=== PATIENT | male | born 1965 | race Caucasian/White ===

== ENCOUNTER 2016-09-01 23:21 | Emergency (ER) | payer OTHER, MEDICAID ==
[2016-09-01 23:50] VITALS: BP 171/99; PULSE 115; RESP 16; TEMP 98.3; O2SAT 98
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
[2016-09-02] MEDS ORDERED: SODIUM CHLOR 0.9% 1000 ML INJ 1,000 ML IV ONE ×2 (00:15→01:15)
[2016-09-02] MEDS ORDERED: ONDANSETRON HCL 4 MG/2 ML VIAL IV ONE (00:15)
[2016-09-02] MEDS ORDERED: KETOROLAC TROMETHAMINE 30 MG/ML (IVP) VIAL IV PUSH ONE ×2 (00:15→02:45)
[2016-09-02 00:36] LABS: AUTOMATED NEUTROPHIL # 10.4 TH/MM3 (1.8-7.7); BASOPHIL # 0.1 TH/MM3 (0-0.2); BASOPHIL % 0.7 % (0.0-2.0); EOSINOPHIL % 0.3 % (0.0-4.0); HEMATOCRIT 44.5 % (39.0-51.0); HEMO FLAGS DIFF FINAL; LYMPHOCYTE # 1.7 TH/MM3 (1.0-4.8); MEAN CELL VOLUME 87.7 FL (80.0-100.0); MEAN CORPUSCULAR HEMOGLOBIN 29.7 PG (27.0-34.0); MEAN CORPUSCULAR HGB CONC 33.9 % (32.0-36.0); MONO % 6.7 % (0.0-8.0); NEUT % 79.3 % (16.0-70.0); PLATELET COUNT 317 TH/MM3 (150-450); RED BLOOD COUNT 5.07 MIL/MM3 (4.50-5.90); RED CELL DISTRIBUTION WIDTH 13.1 % (11.6-17.2); WHITE BLOOD COUNT 13.1 TH/MM3 (4.0-11.0)
--- NOTE | 2016-09-02 00:45 | RADRPT ---
EXAM DATE/TIME: 09/01/2016 23:59 [facility] COMPARISON: No previous studies available for comparison. INDICATIONS : Shortness of breath. MEDICAL HISTORY : None. SURGICAL HISTORY : None. ENCOUNTER: Initial ACUITY: 1 day PAIN SCORE: 10/10 LOCATION: Bilateral chest FINDINGS: A single view of the chest demonstrates the lungs to be symmetrically aerated without evidence of mas s, infiltrate or effusion. The cardiomediastinal contours are unremarkable. Osseous structures are intact. CONCLUSION: 1. No acute findings. Froy Mcgregor MD on September 02, 2016 at 0:43 Board Certified Radiologist. This report was verified electronically.
[2016-09-02 01:06] LABS: ALKALINE PHOSPHATASE 69 U/L (45-117); TOTAL BILIRUBIN ADULT 0.6 MG/DL (0.2-1.0)
[2016-09-02 01:07] LABS: ALT (GPT) 40 U/L (12-78); ANION GAP 9 MEQ/L (5-15); AST (GOT) 35 U/L (15-37); BICARBONATE 27.1 MEQ/L (21.0-32.0); BLOOD UREA NITROGEN 21 MG/DL (7-18); CHLORIDE 108 MEQ/L (98-107); GLOMERULAR FILTRATION RATE 49 ML/MIN (>89); MAGNESIUM 2.2 MG/DL (1.5-2.5); POTASSIUM 4.2 MEQ/L (3.5-5.1); SODIUM (NA) 144 MEQ/L (136-145)
--- NOTE | 2016-09-02 01:08 | RADRPT ---
EXAM DATE/TIME: 09/02/2016 00:34 [facility] COMPARISON: No previous studies available for comparison. INDICATIONS : Lefty lower qaudrant pain. Possible renal stone ORAL CONTRAST: No oral contrast ingested. RADIATION DOSE: 19.71 CTDIvol (mGy) MEDICAL HISTORY : None SURGICAL HISTORY : None. ENCOUNTER: Initial ACUITY: 1 day PAIN SCALE: 10/10 LOCATION: Left lower quadrant TECHNIQUE: Volumetric scanning of the abdomen and pelvis was performed. Using automated exposure control and ad justment of the mA and/or kV according to patient size, radiation dose was kept as low as reasonably achievable to obtain optimal diagnostic quality images. FINDINGS: Lung bases are clear. No acute findings in the liver, spleen, adrenals, right kidney or pancreas. Flash cified gallstones in the gallbladder. There is mild left-sided hydronephrosis and obstructive uropathy above a 5 mm x 3.5 mm calculus in th e distal left ureter just above the bladder. No bowel obstruction. No free fluid or free air. CONCLUSION: 1. Left-sided obstructive uropathy with mild left hydronephrosis and ureteral dilatation above a 5 mm x 3.5 mm calculus in the distal left ureter just above the bladder. 2. Multiple calcified gallstones in the gallbladder without there are ductal dilatation. Froy Mcgregor MD on September 02, 2016 at 1:03 Board Certified Radiologist. This report was verified electronically.
[2016-09-02 01:22] VITALS: BP 136/85; PULSE 104; RESP 16; O2SAT 100
[2016-09-02] MEDS ORDERED: HYDR-3534 PO (03:16)
[2016-09-02] MEDS ORDERED: NAPR1TAB34 PO (03:16)
[2016-09-02] MEDS ORDERED: TAMS5CAP PO (03:16)
--- NOTE | 2016-09-02 20:21 | EKG ---
Date Performed: 09/02/2016 Time Performed: 00:46:53 PTAGE: 51 years EKG: Sinus rhythm NONSPECIFIC T-WAVE ABNORMALITY BORDERLINE ECG NO PREVIOUS TRACING DOCTOR: Teresa Neri Interpretating Date/Time 09/02/2016 20:20:11
== END 2016-09-02 03:31 | disposition home or self-care (01) ==
LOC: NEPE 23:21
DX: N13.2 Hydronephrosis with renal and ureteral calculous obstruction (principal); R94.31 Abnormal electrocardiogram [ECG] [EKG]
CPT/HCPCS: 71010; 74176; 80053; 83605; 83690; 83735; 85025; 86140; 93005; 96374; 96375; 96376; 99285; J1885; J2405; J7030

== ENCOUNTER 2016-09-28 06:05 | Emergency (ER) | payer OTHER, MEDICAID ==
[~2016-09-28 06:05] MED LIST: HYDR-3534 PO; NAPR1TAB34 PO; TAMS5CAP PO
[2016-09-28 06:08] VITALS: BP 104/68; PULSE 94; RESP 18; TEMP 97.9; O2SAT 97
[2016-09-28] MEDS ORDERED: LURA40 PO (06:28)
[2016-09-28] MEDS ORDERED: CLON1 PO (06:28)
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
[2016-09-28 06:58] LABS: AUTOMATED NEUTROPHIL # 5.7 TH/MM3 (1.8-7.7); BASOPHIL % 0.4 % (0.0-2.0); EOSINOPHIL # 0.1 TH/MM3 (0-0.4); EOSINOPHIL % 1.4 % (0.0-4.0); HEMATOCRIT 39.5 % (39.0-51.0); HEMO FLAGS DIFF FINAL; LYMPH % 18.3 % (9.0-44.0); LYMPHOCYTE # 1.4 TH/MM3 (1.0-4.8); MEAN CELL VOLUME 86.4 FL (80.0-100.0); MEAN CORPUSCULAR HEMOGLOBIN 30.3 PG (27.0-34.0); MONO % 7.6 % (0.0-8.0); NEUT % 72.3 % (16.0-70.0); PLATELET COUNT 233 TH/MM3 (150-450); RED BLOOD COUNT 4.57 MIL/MM3 (4.50-5.90); RED CELL DISTRIBUTION WIDTH 12.7 % (11.6-17.2); WHITE BLOOD COUNT 7.9 TH/MM3 (4.0-11.0)
[2016-09-28 07:04] LABS: AMPHETAMINE, URINE NEG (NEG); BARBITURATES, URINE NEG (NEG); COCAINE, URINE NEG (NEG)
[2016-09-28 07:12] LABS: ALT (GPT) 24 U/L (12-78); ANION GAP 8 MEQ/L (5-15); AST (GOT) 14 U/L (15-37); BICARBONATE 25.2 MEQ/L (21.0-32.0); BLOOD UREA NITROGEN 15 MG/DL (7-18); CHLORIDE 108 MEQ/L (98-107); GLOMERULAR FILTRATION RATE 75 ML/MIN (>89); POTASSIUM 3.6 MEQ/L (3.5-5.1); SODIUM (NA) 141 MEQ/L (136-145)
[2016-09-28 07:14] LABS: ACETAMINOPHEN 11.7 MCG/ML (10.0-30.0); ALKALINE PHOSPHATASE 73 U/L (45-117); TOTAL BILIRUBIN ADULT 0.3 MG/DL (0.2-1.0)
--- NOTE | 2016-09-28 07:44 | PD ---
Physical Exam Time Seen by Provider: 07:42 Narrative Patient was transitioned to mt by the prior provider as his labs had not been resulted. He is awaiting medical clearance to be transferred to [facility]. Data Data Last Documented VS Vital Signs Date Time Temp Pulse Resp B/P Pulse Ox O2 Delivery O2 Flow Rate FiO2 09/28/16 06:08 97.9 94 18 104/68 97 Orders Complete Blood Count With Diff (09/28/16 06:26) Comprehensive Metabolic Panel (09/28/16 06:26) Psych Screen (09/28/16 06:26) Drug Screen, Random Urine (09/28/16 06:26) Alcohol (Ethanol) (09/28/16 06:26) Salicylates (Aspirin) (09/28/16 06:26) Tylenol (Acetaminophen) (09/28/16 06:26) Diet Regular Basic (09/28/16 Breakfast) Labs Laboratory Tests Test 09/28/16 06:36 White Blood Count 7.9 TH/MM3 Red Blood Count 4.57 MIL/MM3 Hemoglobin 13.8 GM/DL Hematocrit 39.5 % Mean Corpuscular Volume 86.4 FL Mean Corpuscular Hemoglobin 30.3 PG Mean Corpuscular Hemoglobin 35.0 % Concent Red Cell Distribution Width 12.7 % Platelet Count 233 TH/MM3 Mean Platelet Volume 9.5 FL Neutrophils (%) (Auto) 72.3 % Lymphocytes (%) (Auto) 18.3 % Monocytes (%) (Auto) 7.6 % Eosinophils (%) (Auto) 1.4 % Basophils (%) (Auto) 0.4 % Neutrophils # (Auto) 5.7 TH/MM3 Lymphocytes # (Auto) 1.4 TH/MM3 Monocytes # (Auto) 0.6 TH/MM3 Eosinophils # (Auto) 0.1 TH/MM3 Basophils # (Auto) 0.0 TH/MM3 CBC Comment DIFF FINAL Differential Comment Sodium Level 141 MEQ/L Potassium Level 3.6 MEQ/L Chloride Level 108 MEQ/L Carbon Dioxide Level 25.2 MEQ/L Anion Gap 8 MEQ/L Blood Urea Nitrogen 15 MG/DL Creatinine 1.04 MG/DL Estimat Glomerular Filtration 75 ML/MIN Rate Random Glucose 147 MG/DL Calcium Level 8.6 MG/DL Total Bilirubin 0.3 MG/DL Aspartate Amino Transf 14 U/L (AST/SGOT) Alanine Aminotransferase 24 U/L (ALT/SGPT) Alkaline Phosphatase 73 U/L Total Protein 7.3 GM/DL Albumin 4.0 GM/DL Salicylates Level 2.1 MG/DL Urine Opiates Screen POS Acetaminophen Level 11.7 MCG/ML Urine Barbiturates Screen NEG Urine Amphetamines Screen NEG Urine Benzodiazepines Screen NEG Urine Cocaine Screen NEG Urine Cannabinoids Screen NEG Ethyl Alcohol Level LESS THAN 3 MG/DL MDM Medical Record Reviewed: Yes Supervised Visit with LAURA: No Differential Diagnosis Anxiety, depression Narrative Course Labs have been reviewed. Blood sugar elevated at 147. abnormal results below: Laboratory Tests Test 09/28/16 06:36 Neutrophils (%) (Auto) 72.3 % (16.0-70.0) Chloride Level 108 MEQ/L (98-107) Estimat Glomerular Filtration 75 ML/MIN (>89) Rate Random Glucose 147 MG/DL (74-106) Aspartate Amino Transf 14 U/L (15-37) (AST/SGOT) Salicylates Level 2.1 MG/DL (2.8-20.0) Urine Opiates Screen POS (NEG) Patient is medically cleared for transfer to psych. Diagnosis Primary Impression: Anxiety and depression Condition: Stable Natalie Garcia Sep 28, 2016 07:44
--- NOTE | 2016-09-28 09:48 | MB ---
cc: GOLD KRAMER DATE OF CONSULTATION 09/28/2016 PHYSICIAN REQUESTING CONSULTATION Emergency department. REASON FOR CONSULTATION Voluntary psychiatric evaluation. HISTORY OF PRESENT ILLNESS Mr. Mcguire is 51-year-old male with a reported history of schizophrenia and agoraphobia who presents voluntarily requesting a psychiatric evaluation. He apparently articulated some suicidal and homicidal ideation to the ED provider but was not placed under a Vu Act. Reviewing the electronic medical record, I see no prior psychiatric contact within our system. The patient is seen and examined, chart reviewed, case discussed with nurse in the [facility]. On my examination today, social issues seem to predominate. The patient presents as extremely manipulative and antisocial. He tells me that he has recently moved up from [facility] within the last year or so and currently is forced to live in a "bad apartment surrounded by low-lifes, crime infested." He says that he does not like living in this apartment because "other nationality people are there that I do not like." He also alludes to it being in a "bad black neighborhood." He says that he wants us to psychiatrically admit him in order to house him and says that if I recommend his discharge from the emergency department he is going to manufacture a circumstance to be brought back to the ED so that "you are going to have to keep me." He says that his undesirable living situation has made him somewhat anxious and as a consequence he has been over-using his reportedly prescribed Klonopin. Otherwise, the patient's psychiatric symptomatology is fairly vague. The patient says that his psychiatric symptoms were in "intermission" until the above stressors occurred. He describes what he calls panic attacks but which sound more like paroxysms of high anxiety and not genuine panic but otherwise voluntarily spontaneously describes no psychiatric symptomatology. With questioning, he does allude to some "hallucinations" although he cannot describe these in any detail whatsoever. He also, when pressed, says that he is having "homicidal thoughts towards myself and others." He does not articulate any specific victim. He also acknowledges that any sort of violent behavior would be both of illegal and immoral and result in legal sanction and residential/custodial. Overall presentation seems extremely malingered. The remainder of the psychiatric ROS is negative. PAST PSYCHIATRIC HISTORY The patient reports that he was diagnosed with schizophrenia and agoraphobia in 1986. He says that he followed with a psychiatrist in [facility] at [facility] since 2001 and recently has begun seeing a provider at [facility], who he saw a last month. He is reportedly prescribed Klonopin 1 mg three times a day and Zoloft 150 mg three times a day. He reports that his most recent psychiatric admission was in 2005 in [facility]. He reports one prior suicide attempt in 1986 in which he tried to walk in traffic. FAMILY HISTORY The patient reports that his mother and maternal grandfather had "the same thing" as he has. He denies any family history of suicide. He denies reports that there is a family history of substance use disorder on his father's side of the family. CHEMICAL DEPENDENCY HISTORY The patient denies any abuse of drugs or alcohol. He says that the toxicology finding of opiates was from codeine that he was given and for a kidney stone. SOCIAL HISTORY The patient denies a history of physical, verbal or sexual abuse. He lives alone in an apartment in [place]. He is currently on disability and has some college education. He denies any or legal history. He is single with no children. He is a Amish. PAST MEDICAL HISTORY History of kidney stone. See electronic medical record. REVIEW OF SYSTEMS No reported headache, vision or hearing changes, chest pain, shortness of breath, bowel or bladder issues. No other physical complaints. PHYSICAL EXAMINATION VITAL SIGNS: Temperature 97.9, pulse 94, respirations 18, blood pressure 104/68, pulse oximetry 97% on room air. Physical examination was completed in the emergency room by the ER staff and the patient was medically cleared. On my examination today, the patient appears to be in no acute physical distress. He appears to be well-nourished and well-developed and well-groomed. No motor abnormalities noted. LABORATORIES REVIEWED CBC is unremarkable. CMP is significant for mildly decreased GFR at 75 and mild hyperglycemia at 147. Toxicology is positive for opiates and alcohol level was undetectable. MENTAL STATUS EXAM The patient is casually dressed. He is well-groomed and certainly maintaining basic hygiene. He is awake, alert and oriented to person and hospital as well as approximate date. No evidence of delirium. No motor abnormalities noted. Speech is within normal limits for rate, tone and volume. Language and fund of knowledge seem average. Mood is somewhat dysphoric but not really depressed and affect is restricted, particularly when I directly challenge him on when I suspect is his malingering behavior. Thought process linear and goal-directed. No loosening of associations. No evident delusions. When pressed describes vague audiovisual hallucinations but does not appear at all internally stimulated. He does articulate some vague suicidal and homicidal ideation with no specific victim in mind in the context of a discharge discussion only. Insight and judgment seem fair. ASSESSMENT AND PLAN 1. Malingering, I suspect to get out of his apartment which he does not like and be housed on the inpatient unit, Z76.5. 2. Adjustment reaction with antisocial behavior, F43.29. This is a 51-year-old male with psychiatric history as described above who presents on a voluntary basis requesting psychiatric evaluation. On my examination today, the patient presents as extremely manipulative and antisocial. He says that he has moved up from [facility] to [place] and does not like his apartment because his area is crime-ridden and too filled for his taste with -Americans and people of other nationalities. He expects that I will admit him to the inpatient psychiatric unit and house him there and he says that if I do not recommend his admission to the inpatient psychiatric unit, he will simply manufacture a circumstance that will necessitate his admission. Weighing the acute, chronic, and protective factors and based on the available evidence, I respiratory technician that the patient does not constitute a risk of harm to self or others from a mental illness as defined under the Vu Act, antisocial personality being specifically excepted from the Vu Act definition of mental illness. His level of function appears to be adequate for outpatient care. Therefore, the patient does not require psychiatric admission at this time. Moreover, I suspect any admission would be counter-therapeutic as it would reinforce his manipulative behavior. Given that the patient is new to us from a psychiatric standpoint, I will retain the patient in the ED if he is willing to allow us to obtain some collateral information, and I have instructed the nursing staff to pursue this. So long as this is not terribly concerning, the patient may be discharged from the ED from a psychiatric standpoint. He is recommended to follow up with his outpatient psychiatric provider and to return to the psychiatric emergency room for any concerning psychiatric symptoms. Case discussed with RN in the [facility] as well as in the [facility]. Thank you very much for this consultation. Gold Kramer DC/BARRERA /8:28 AM /9:19 AM JAYNE
[2016-09-28 10:13] VITALS: BP 108/69; PULSE 88; RESP 18
[2016-09-28 16:03] VITALS: BP 103/64; PULSE 74; RESP 16; TEMP 97.9; O2SAT 97
[2016-09-28 17:00] VITALS: BP 103/64; PULSE 74; RESP 16; O2SAT 97
== END 2016-09-28 18:33 | disposition home or self-care (01) ==
LOC: NEPD 06:05 → NEPJ 18:33
DX: F41.8 Other specified anxiety disorders (principal); F43.29 Adjustment disorder with other symptoms; Z76.5 Malingerer [conscious simulation]; Z86.59 Personal history of other mental and behavioral disorders; Z87.442 Personal history of urinary calculi
CPT/HCPCS: 80053; 80307; 85025; 99284

== ENCOUNTER 2016-10-19 12:20 | Emergency (ER) | payer OTHER, MEDICAID ==
[~2016-10-19 12:20] MED LIST changes: +CLON1 PO; +LURA40 PO
[2016-10-19 12:22] VITALS: BP 128/87; PULSE 114; RESP 20; TEMP 97.8; O2SAT 97
--- NOTE | 2016-10-19 12:57 | PD ---
Physical Exam Date Seen by Provider: October 19, 2016 Time Seen by Provider: 12:49 Narrative 51 y/o male with Hx Left Renal Colic and Gallbladder stones here with ongoing pain and Nausea. Was seen by Dr. Jalloh this am and had repeat CT scan of Abd. Was told to come here as his Insurance was not taken by them, and he needed surgerical procedure that needed to happen in the Hospital. Patient has pain 6/ 10. Denies fever, nausea or urinary burning. V/S Stable Awaiting Bed Placement. Data Data Last Documented VS Vital Signs Date Time Temp Pulse Resp B/P Pulse Ox O2 Delivery O2 Flow Rate FiO2 10/19/16 12:22 97.8 114 20 128/87 97 Room Air [facility] Medical Record Reviewed: Yes Supervised Visit with LAURA: Yes Condition: Stable Corey Montoya October 19, 2016 12:57
[2016-10-19] MEDS ORDERED: KETOROLAC TROMETHAMINE 30 MG/ML (IVP) VIAL IVP ONE (16:00)
[2016-10-19] MEDS ORDERED: SODIUM CHLOR 0.9% 1000 ML INJ 1,000 ML IV SCH (16:00)
[2016-10-19] MEDS ORDERED: MORPHINE SULFATE 4 MG/ML INJ IV PUSH ONE (16:00)
[2016-10-19] MEDS ORDERED: ONDANSETRON HCL 4 MG/2 ML VIAL IVP ONE (16:00)
[2016-10-19] MEDS ORDERED: SODIUM CHLORIDE 0.9% FLUSH 10 ML FLUSH IV FLUSH PRN (16:00)
--- NOTE | 2016-10-19 16:08 | PD ---
HPI Chief Complaint: Flank/Kidney Pain Time Seen by Provider: 16:00 Travel History International Travel<30 days: No Contact w/Intl Traveler<30days: No Traveled to known affect area: No History of Present Illness HPI The patient is a 51-year-old male who presents to the emergency department from Dr. Amaro's office for left flank pain and epigastric to right upper quadrant abdominal pain. The patient has a history of kidney stone on the left side with mild hydronephrosis, was referred to see urology and an outpatient basis. The patient states he went to his urologist office earlier today and they performed a CT the abdomen and pelvis, however, stated they were unable to see him because of his insurance and referred him to the emergency department. The patient does complain of left flank pain that radiates into the left testicle, denies any hematuria, dysuria, frequency, or urgency. The patient also complains of right upper quadrant and epigastric abdominal pain for last several weeks associated with nausea and postprandial symptoms. The patient does have a history of gallstones, was advised to come to the emergency department for further evaluation of his gallstones. The patient denies a fever , chills, or sweats. PFSH Past Medical History Bipolar Disorder: Yes Depression: Yes Diminished Hearing: No Kidney Stones: Yes Psychiatric: Yes Schizophrenia: Yes Social History Alcohol Use: No Tobacco Use: No Substance Use: No (Denies) Allergies-Medications (Allergen,Severity, Reaction): Coded Allergies: No Known Allergies (Unverified , 10/19/16) Reported Meds & Prescriptions Reported Meds & Active Scripts Active Naproxen EC (Naproxen) 500 Mg Tabdr 500 Mg PO BID PRN Lortab (Hydrocodone-Acetaminophen) 7.5-325 Mg Tab 1 Tab PO Q6H PRN Flomax (Tamsulosin HCl) 0.4 Mg Cap 0.4 Mg PO HS Reported Latuda (Lurasidone) 40 Mg Tab 40 Mg PO DAILY Klonopin (Clonazepam) 1 Mg Tab 1 Mg PO DAILY Review of Systems Except as stated in HPI: all other systems reviewed are Neg General / Constitutional: No: Fever Cardiovascular: No: Chest Pain or Discomfort Respiratory: No: Shortness of Breath Gastrointestinal: Positive: Nausea, Abdominal Pain, No: Vomiting, Diarrhea Genitourinary: Positive: Flank Pain, Other (left flank pain radiating into the scrotum), No: Dysuria Skin: No Rash Physical Exam Narrative GENERAL: Awake, alert, 51-year-old male who appears his stated age and is in no acute respiratory distress. SKIN: Focused skin assessment warm/dry. HEAD: Atraumatic. Normocephalic. EYES: Pupils equal and round. No scleral icterus. No injection or drainage. ENT: No nasal bleeding or discharge. Mucous membranes pink and moist. NECK: Trachea midline. No JVD. CARDIOVASCULAR: Regular rate and rhythm. No murmur appreciated. RESPIRATORY: No accessory muscle use. Clear to auscultation. Breath sounds equal bilaterally. GASTROINTESTINAL: Abdomen soft, mild tenderness epigastrium and right upper quadrant. Back: No CVA tenderness. Genital: Both testicles are distended, no tenderness over the testicles or epididymis. MUSCULOSKELETAL: No obvious deformities. No clubbing. No cyanosis. No edema. NEUROLOGICAL: Awake and alert. No obvious cranial nerve deficits. Motor grossly within normal limits. Normal speech. PSYCHIATRIC: Appropriate mood and affect; insight and judgment normal. Data Data Last Documented VS Vital Signs Date Time Temp Pulse Resp B/P Pulse Ox O2 Delivery O2 Flow Rate FiO2 10/19/16 18:47 18 10/19/16 18:46 80 124/87 97 Room Air 10/19/16 12:22 97.8 Orders Complete Blood Count With Diff (10/19/16 16:00) Comprehensive Metabolic Panel (10/19/16 16:00) Lipase (10/19/16 16:00) Iv Access Insert/Monitor (10/19/16 16:00) Ecg Monitoring (10/19/16 16:00) Oximetry (10/19/16 16:00) Morphine Inj (Morphine Inj) (10/19/16 16:00) Ondansetron Inj (Zofran Inj) (10/19/16 16:00) Sodium Chlor 0.9% 1000 Ml Inj (Ns 1000 M (10/19/16 16:00) Sodium Chloride 0.9% Flush (Ns Flush) (10/19/16 16:00) Ketorolac Inj (Toradol Inj) (10/19/16 16:00) Ct Abd/Pel W/O Iv Contrast (10/19/16 ) Urinalysis - C+S If Indicated (10/19/16 17:38) Labs Laboratory Tests Test 10/19/16 10/19/16 16:25 17:50 White Blood Count 7.4 TH/MM3 Red Blood Count 5.03 MIL/MM3 Hemoglobin 14.7 GM/DL Hematocrit 44.1 % Mean Corpuscular Volume 87.7 FL Mean Corpuscular Hemoglobin 29.2 PG Mean Corpuscular Hemoglobin 33.3 % Concent Red Cell Distribution Width 12.7 % Platelet Count 295 TH/MM3 Mean Platelet Volume 9.8 FL Neutrophils (%) (Auto) 68.8 % Lymphocytes (%) (Auto) 23.7 % Monocytes (%) (Auto) 6.0 % Eosinophils (%) (Auto) 0.9 % Basophils (%) (Auto) 0.6 % Neutrophils # (Auto) 5.1 TH/MM3 Lymphocytes # (Auto) 1.8 TH/MM3 Monocytes # (Auto) 0.4 TH/MM3 Eosinophils # (Auto) 0.1 TH/MM3 Basophils # (Auto) 0.0 TH/MM3 CBC Comment DIFF FINAL Differential Comment Sodium Level 140 MEQ/L Potassium Level 3.8 MEQ/L Chloride Level 102 MEQ/L Carbon Dioxide Level 28.4 MEQ/L Anion Gap 10 MEQ/L Blood Urea Nitrogen 16 MG/DL Creatinine 1.25 MG/DL Estimat Glomerular Filtration 61 ML/MIN Rate Random Glucose 73 MG/DL Calcium Level 8.8 MG/DL Total Bilirubin 0.6 MG/DL Aspartate Amino Transf 24 U/L (AST/SGOT) Alanine Aminotransferase 26 U/L (ALT/SGPT) Alkaline Phosphatase 77 U/L Total Protein 7.9 GM/DL Albumin 4.2 GM/DL Lipase 73 U/L Urine Color YELLOW Urine Turbidity CLEAR Urine pH 5.5 Urine Specific [place] 1.020 Urine Protein TRACE mg/dL Urine Glucose (UA) NEG mg/dL Urine Ketones 40 mg/dL Urine Occult Blood NEG Urine Nitrite NEG Urine Bilirubin NEG Urine Urobilinogen LESS THAN 2.0 MG/DL Urine Leukocyte Esterase NEG Urine RBC LESS THAN 1 /hpf Urine WBC 4 /hpf Urine Squamous Epithelial <1 /hpf Cells Urine Bacteria OCC /hpf Urine Hyaline Casts 1 /lpf Urine Mucus FEW /lpf Microscopic Urinalysis Comment CULT NOT INDICATED MDM Medical Decision Making Medical Screen Exam Complete: Yes Emergency Medical Condition: Yes Medical Record Reviewed: Yes Differential Diagnosis Differential diagnosis includes nephrolithiasis, biliary colic, hydronephrosis, cholecystitis, choledocholithiasis, pancreatitis, pyelonephritis. Narrative Course IV was established, labs are drawn and sent, and the patient was placed on cardiac telemetry monitoring and continuous pulse oximetry monitoring. Ultrasound the gallbladder was ordered. We call the urologist office, they stated the CT was performed but they will not have a read for several days. The patient was sent to the emergency department for evaluation of renal stones and gallstones. Therefore, repeat noncontrast CT the abdomen and pelvis was performed. The patient was administered morphine, Zofran, Toradol, and IV fluids. The patient was signed out to the oncoming physician at 5 PM. Diagnosis Primary Impression: Cholelithiasis Qualified Code: K80.20 - Calculus of gallbladder without cholecystitis without obstruction Disposition: 01 DISCHARGE HOME Condition: Stable Daniel Bryant MD October 19, 2016 16:08
[2016-10-19 16:10] VITALS: RESP 18; O2SAT 97
[2016-10-19 16:21] VITALS: BP 128/91; PULSE 78; RESP 18; O2SAT 98
[2016-10-19 17:04] LABS: AUTOMATED NEUTROPHIL # 5.1 TH/MM3 (1.8-7.7); BASOPHIL % 0.6 % (0.0-2.0); EOSINOPHIL # 0.1 TH/MM3 (0-0.4); EOSINOPHIL % 0.9 % (0.0-4.0); HEMATOCRIT 44.1 % (39.0-51.0); HEMO FLAGS DIFF FINAL; LYMPH % 23.7 % (9.0-44.0); LYMPHOCYTE # 1.8 TH/MM3 (1.0-4.8); MEAN CELL VOLUME 87.7 FL (80.0-100.0); MEAN CORPUSCULAR HEMOGLOBIN 29.2 PG (27.0-34.0); MEAN CORPUSCULAR HGB CONC 33.3 % (32.0-36.0); NEUT % 68.8 % (16.0-70.0); PLATELET COUNT 295 TH/MM3 (150-450); RED BLOOD COUNT 5.03 MIL/MM3 (4.50-5.90); RED CELL DISTRIBUTION WIDTH 12.7 % (11.6-17.2); WHITE BLOOD COUNT 7.4 TH/MM3 (4.0-11.0)
--- NOTE | 2016-10-19 17:23 | PD ---
Physical Exam Date Seen by Provider: October 19, 2016 Time Seen by Provider: 18:02 Narrative 51-year-old male was sent to the emergency room by his urologist for gallstones. Patient was seen by the previous ER physician. Please refer to his history and physical regarding further details. Patient was in his urologist's office today and somehow was diagnosed with gallbladder stone as well as previous kidney stone. Apparently he had a CAT scan done at the urologists office but because of insurance issues further care could be provided at the urologists office. The CAT scan was not read and was told to the previous ER provider that it would take 2 days to be read. Patient was sent to the emergency room for further assessment. Workup was initiated including a repeat CAT scan. Signed out to me was to follow up on those reports. Test results came back and his CBC, chemistry and LFTs are all within normal limit. CAT scan does not show any ureteral stone. He does have cholelithiasis which he had in the previous CAT scan as well. I went to let the patient no about these test results. He seems confused and upset because he does not understand why he was sent to the emergency room. I tried to explain to him to the best of my ability that his cholelithiasis can be taken care of as an outpatient by a general surgeon. He will be discharged home. Data Data Last Documented VS Vital Signs Date Time Temp Pulse Resp B/P Pulse Ox O2 Delivery O2 Flow Rate FiO2 10/19/16 18:47 18 10/19/16 18:46 80 124/87 97 Room Air 10/19/16 12:22 97.8 Orders Complete Blood Count With Diff (10/19/16 16:00) Comprehensive Metabolic Panel (10/19/16 16:00) Lipase (10/19/16 16:00) Iv Access Insert/Monitor (10/19/16 16:00) Ecg Monitoring (10/19/16 16:00) Oximetry (10/19/16 16:00) Morphine Inj (Morphine Inj) (10/19/16 16:00) Ondansetron Inj (Zofran Inj) (10/19/16 16:00) Sodium Chlor 0.9% 1000 Ml Inj (Ns 1000 M (10/19/16 16:00) Sodium Chloride 0.9% Flush (Ns Flush) (10/19/16 16:00) Ketorolac Inj (Toradol Inj) (10/19/16 16:00) Ct Abd/Pel W/O Iv Contrast (10/19/16 ) Urinalysis - C+S If Indicated (10/19/16 17:38) Labs Laboratory Tests Test 10/19/16 10/19/16 16:25 17:50 White Blood Count 7.4 TH/MM3 Red Blood Count 5.03 MIL/MM3 Hemoglobin 14.7 GM/DL Hematocrit 44.1 % Mean Corpuscular Volume 87.7 FL Mean Corpuscular Hemoglobin 29.2 PG Mean Corpuscular Hemoglobin 33.3 % Concent Red Cell Distribution Width 12.7 % Platelet Count 295 TH/MM3 Mean Platelet Volume 9.8 FL Neutrophils (%) (Auto) 68.8 % Lymphocytes (%) (Auto) 23.7 % Monocytes (%) (Auto) 6.0 % Eosinophils (%) (Auto) 0.9 % Basophils (%) (Auto) 0.6 % Neutrophils # (Auto) 5.1 TH/MM3 Lymphocytes # (Auto) 1.8 TH/MM3 Monocytes # (Auto) 0.4 TH/MM3 Eosinophils # (Auto) 0.1 TH/MM3 Basophils # (Auto) 0.0 TH/MM3 CBC Comment DIFF FINAL Differential Comment Sodium Level 140 MEQ/L Potassium Level 3.8 MEQ/L Chloride Level 102 MEQ/L Carbon Dioxide Level 28.4 MEQ/L Anion Gap 10 MEQ/L Blood Urea Nitrogen 16 MG/DL Creatinine 1.25 MG/DL Estimat Glomerular Filtration 61 ML/MIN Rate Random Glucose 73 MG/DL Calcium Level 8.8 MG/DL Total Bilirubin 0.6 MG/DL Aspartate Amino Transf 24 U/L (AST/SGOT) Alanine Aminotransferase 26 U/L (ALT/SGPT) Alkaline Phosphatase 77 U/L Total Protein 7.9 GM/DL Albumin 4.2 GM/DL Lipase 73 U/L Urine Color YELLOW Urine Turbidity CLEAR Urine pH 5.5 Urine Specific [place] 1.020 Urine Protein TRACE mg/dL Urine Glucose (UA) NEG mg/dL Urine Ketones 40 mg/dL Urine Occult Blood NEG Urine Nitrite NEG Urine Bilirubin NEG Urine Urobilinogen LESS THAN 2.0 MG/DL Urine Leukocyte Esterase NEG Urine RBC LESS THAN 1 /hpf Urine WBC 4 /hpf Urine Squamous Epithelial <1 /hpf Cells Urine Bacteria OCC /hpf Urine Hyaline Casts 1 /lpf Urine Mucus FEW /lpf Microscopic Urinalysis Comment CULT NOT INDICATED MDM Supervised Visit with LAURA: No Diagnosis Primary Impression: Cholelithiasis Qualified Code: K80.20 - Calculus of gallbladder without cholecystitis without obstruction Referrals: Kimani Rodriguez MD 1 day Additional Instruction: Please call the general surgeon whose name and number been provided to you. Make an appointment with him to be seen. Return to the ER if the condition worsens or any other new concerns. Med/Other Pt SpecificInfo: No Change to Meds Disposition: 01 DISCHARGE HOME Condition: Stable Heaven Adams MD October 19, 2016 17:23
[2016-10-19 17:25] LABS: ANION GAP 10 MEQ/L (5-15); AST (GOT) 24 U/L (15-37); BICARBONATE 28.4 MEQ/L (21.0-32.0); BLOOD UREA NITROGEN 16 MG/DL (7-18); CHLORIDE 102 MEQ/L (98-107); GLOMERULAR FILTRATION RATE 61 ML/MIN (>89); POTASSIUM 3.8 MEQ/L (3.5-5.1); SODIUM (NA) 140 MEQ/L (136-145)
[2016-10-19 17:28] LABS: ALKALINE PHOSPHATASE 77 U/L (45-117); ALT (GPT) 26 U/L (12-78); TOTAL BILIRUBIN ADULT 0.6 MG/DL (0.2-1.0)
--- NOTE | 2016-10-19 17:45 | RADRPT ---
EXAM DATE/TIME: 10/19/2016 17:23 [facility] COMPARISON: CT ABDOMEN & PELVIS W/O CONTRAST, September 02, 2016, 0:34. INDICATIONS : Left sided flank pain. ORAL CONTRAST: No oral contrast ingested. RADIATION DOSE: 8.49 CTDIvol (mGy) MEDICAL HISTORY : Renal calculi. SURGICAL HISTORY : Appendectomy. ENCOUNTER: Initial ACUITY: 1 day PAIN SCALE: 6/10 LOCATION: Left flank TECHNIQUE: Volumetric scanning of the abdomen and pelvis was performed. Using automated exposure control and ad justment of the mA and/or kV according to pa The lack of IV contrast limits the diagnosis for certain organ pathology.tient size, radiation dose was kept as low as reasonably achievable to obtain optima l diagnostic quality images. FINDINGS: LOWER LUNGS: The visualized lower lungs are clear. LIVER: Homogeneous density without lesion. There is no dilation of the biliary tree. Multiple calcified gal lstones. No significant change SPLEEN: Normal size without lesion. PANCREAS: Within normal limits. KIDNEYS: Normal in size and shape. There is no mass, stone, or hydronephrosis. The previously noted left hydr onephrosis has resolved. The ureters are nondilated. The previously noted distal left ureteral stone is no longer present. ADRENAL GLANDS: Within normal limits. VASCULAR: There is no aortic aneurysm. BOWEL/MESENTERY: The stomach, small bowel, and colon demonstrate no acute abnormality. There is no free intraperitone al air or fluid. ABDOMINAL WALL: Within normal limits. RETROPERITONEUM: There is no lymphadenopathy. BLADDER: No wall thickening or mass. REPRODUCTIVE: Within normal limits. INGUINAL: There is no lymphadenopathy or hernia. MUSCULOSKELETAL: Within normal limits for patient age. CONCLUSION: 1. The previously noted distal left ureteral stone has passed. 2. No evidence of hydronephrosis 3. Stable gallstones in the gallbladder. Sean Diaz MD on October 19, 2016 at 17:40 Board Certified Radiologist. This report was verified electronically.
[2016-10-19 18:46] VITALS: BP 124/87; PULSE 80; RESP 18; O2SAT 97
[2016-10-19 18:46] LABS: BACTERIA, URINE OCC /hpf; BLOOD, URINE NEG (NEG); COMMENT (UR) CULT NOT INDICATED; CULTURE IF INDICATED CULT NOT INDICATED; GLUCOSE,URINE NEG (NEG); HYALINE CAST, URINE 1 /lpf (RARE); KETONE, URINE 40 mg/dL (NEG); MUCUS URINE FEW /lpf (OCC); NITRITE,URINE NEG (NEG); PH, URINE 5.5 (5.0-8.5); SQUAMOUS EPITHELIAL CELL URINE <1 /hpf (0-5); URINE COLOR YELLOW (YELLW/STRAW)
[2016-10-19 18:47] VITALS: RESP 18
== END 2016-10-19 18:57 | disposition home or self-care (01) ==
LOC: NEPD 12:20
DX: K80.20 Calculus of gallbladder without cholecystitis without obstruction (principal); F31.9 Bipolar disorder, unspecified; F32.9 Major depressive disorder, single episode, unspecified; F20.9 Schizophrenia, unspecified; Z87.442 Personal history of urinary calculi
CPT/HCPCS: 74176; 80053; 81001; 83690; 85025; 96361; 96374; 96375; 99284; J1885; J2270; J2405; J7030

== ENCOUNTER 2017-09-01 09:33 | Emergency (ER) | payer OTHER, MEDICAID ==
[2017-09-01 09:50] VITALS: BP 190/70; PULSE 92; RESP 16; TEMP 98.5; O2SAT 95
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
[2017-09-01] MEDS ORDERED: PERI0.126 SWISH-SPIT (10:18)
[2017-09-01] MEDS ORDERED: IBUP-232 PO (10:18)
[2017-09-01] MEDS ORDERED: PENI500T PO (10:18)
== END 2017-09-01 10:27 | disposition home or self-care (01) ==
LOC: NEPK 09:33
DX: S01.511A Laceration without foreign body of lip, initial encounter (principal); L08.9 Local infection of the skin and subcutaneous tissue, unspecified; F31.9 Bipolar disorder, unspecified; F20.9 Schizophrenia, unspecified; W18.09XA Striking against other object with subsequent fall, initial encounter
CPT/HCPCS: 99283